=== PATIENT | male | born 1995 | race Caucasian/White ===

== ENCOUNTER 2021-06-28 03:06 | Emergency (ER) | payer OTHER ==
[~2021-06-28] VITALS: Ht 175.3 cm; Wt 97.5 kg
[~2021-06-28 03:06] MED LIST: HYDROmorphone 1 MG/ML INJ. CARTRIDGE ONE
[2021-06-28 03:08] VITALS: BP_SYST 102
--- NOTE | 2021-06-28 03:08 | NUR ---
Patient to ER bed 8 to gown for evaluation. Side rails up. Report given to Earl DICKSON.
--- NOTE | 2021-06-28 03:09 | NUR ---
ER at bedside examining patient.
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
[2021-06-28] MEDS ORDERED: HYDROmorphone 1 MG/ML INJ. CARTRIDGE IVP ONE (03:15)
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
[2021-06-28] MEDS ORDERED: LIDOCAINE 2%, 20 ML MDV INJ ONE (04:45)
--- NOTE | 2021-06-28 06:16 | NUR ---
PT REPAIRED LACERATION OF THE RIGHT EYEBROW AND LIP CLEANED WITH GAUZE AND NORMAL SALINE. PT TOLERATED WELL. AT THE BEDSIDE
[2021-06-28 06:30] VITALS: BP_SYST 141
--- NOTE | 2021-06-28 07:09 | NUR ---
PT AND NOTIFIED OF DISCHARGE, PROVIDED HOMECARE INSTRUCTIONS FOR SUTURES AND DISCHARGE PAPERWORK. PT ENCOURAGED TO FOLLOW UP WITH PRIMARY CARE PHYSICIAN WITH THREE DAYS. IV REMOVED FROM RIGHT AC, TIP OF CATHETER INTACT, CLEAN GAUZE APPLIED TO SITE. PT TRANSPORTED BY RN VIA WHEELCHAIR TO AWAITING VEHICLE, ACCOMAPNIED BY . PT DISCHARGED WITH ALL BELONGINGS IN STABLE CONDITION.
== END 2021-06-28 07:14 | disposition home or self-care (01) ==
LOC: SED 03:06
DX: S01.111A Laceration without foreign body of right eyelid and periocular area, initial encounter (principal); S01.511A Laceration without foreign body of lip, initial encounter; Y04.2XXA Assault by strike against or bumped into by another person, initial encounter; Y93.89 Activity, other specified; Y92.89 Other specified places as the place of occurrence of the external cause; Y99.8 Other external cause status
CPT/HCPCS: 12013; 12052; 70450; 70486; 76376; 96374; 99285; J1170; J2001